=== PATIENT | male | born 1950 | race Caucasian/White ===

== ENCOUNTER → 2020-10-02 | Outpatient (CLI) | payer MEDICARE ==
[~2020-10-02] MED LIST: ACETAMINOPHEN TAB 325 MG TAB PO STA; BAMLANIVIMAB (EUA) 700 MG, ETESEVIMAB (EUA) 1,400 MG in SODIUM CHLORIDE 0.9% 50 ML IVPB ONE; SODIUM CHLORIDE 0.9% 1,000 ML IV ONE; SODIUM CHLORIDE 0.9% 50 ML IVPB ONE; SODIUM CHLORIDE 0.9% 500 ML 500 ML in EMPTY BAG 1 BAG IV PRN
[2020-10-02] MEDS: ONDANSETRON 4 MG/2 ML VIAL IVP STA ×2 (04:23→10:30)
[2020-10-02 04:29] LABS: Basophils % (A) 1 %; Eosinophils % (A) 1 %; HCT 44.5 % (39.0-53.0); HGB 16.6 gm/dL (13.0-17.5); Lymphocytes # (A) 0.5 k/uL (1.0-4.8); Lymphocytes % (A) 18 %; MCH 30.9 pg (25.0-35.0); MCHC 37.2 g/dL (31.0-37.0); Mean Platelet Volume 7.9; Monocytes # (A) 0.3 k/uL (0-1.0); Monocytes % (A) 12 %; Neutrophils # (A) 1.9 k/uL (1.3-7.7); Neutrophils % (A) 67 %; Platelet Count 105 k/uL (150-450); RBC 5.37 m/uL (4.30-5.90); RDW 12.8 % (11.5-15.5); WBC 2.8 k/uL (3.8-10.6)
[2020-10-02 04:47] LABS: ALT 57 U/L (4-49); AST 66 U/L (17-59); African American GFR (CKD) >90 (>60 ml/min/1.73 sqM); Alkaline Phosphatase 81 U/L (38-126); Amylase 66 U/L (30-110); Anion Gap 10 mmol/L; Blood Urea Nitrogen 7 mg/dL (9-20); Calcium 8.6 mg/dL (8.4-10.2); Carbon Dioxide 26 mmol/L (22-30); Chloride 90 mmol/L (98-107); Glucose 112 mg/dL (74-99); Lipase 115 U/L (23-300); Non-African American GFR(CKD) >90 (>60 ml/min/1.73 sqM); Potassium 3.7 mmol/L (3.5-5.1); Sodium 126 mmol/L (137-145); Total Bilirubin 0.8 mg/dL (0.2-1.3); Total Protein 6.7 g/dL (6.3-8.2)
[2020-10-02 06:00] LABS: Appearance,Urine Clear (Clear); Bilirubin,Urine Negative (Negative); Blood,Urine Negative (Negative); Color,Urine Yellow; Glucose,Urine (UA) Negative (Negative); Ketones,Urine 3+ (Negative); Leukocyte Esterase,Urine Negative (Negative); Nitrite,Urine Negative (Negative); PH, Urine 6.5 (5.0-8.0); Protein,Urine Negative (Negative); Specific Gravity,Urine 1.011 (1.001-1.035); Urobilinogen,Urine <2.0 mg/dL (<2.0)
--- NOTE | 2020-10-02 06:04 | ED ---
Nausea/Vomiting/Diarrhea HPI - General Chief complaint: Nausea/Vomiting/Diarrhea Stated complaint: nausea, vomiting Time Seen by Provider: 10/02/20 03:46 Source: patient Mode of arrival: wheelchair Limitations: no limitations - History of Present Illness Initial comments: This patient is 70-year-old man presenting to have evaluation for weakness, fatigue, some myalgias, and diarrhea that developing over the past couple of days. Denies dyspnea. No chest pain. No abdominal pain. MD complaint: nausea, diarrhea -: hour(s) Description of Vomiting: food contents Associated Abdominal Pain: No Improves with: none Worsens with: none Associated Symptoms: myalgias, cough - Related Data Allergies Allergy/AdvReac Type Severity Reaction Status Date / Time No Known Allergies Allergy Verified 10/02/20 03:20 Review of Systems ROS Statement: Those systems with pertinent positive or pertinent negative responses have been documented in the HPI. ROS Other: All systems not noted in ROS Statement are negative. Constitutional: Denies: fever, chills, weakness Respiratory: Denies: cough, dyspnea Cardiovascular: Denies: chest pain, palpitations, edema Endocrine: Reports: fatigue Gastrointestinal: Reports: nausea, diarrhea. Denies: abdominal pain, vomiting, constipation, melena, hematochezia Genitourinary: Denies: dysuria, hematuria Musculoskeletal: Denies: back pain Skin: Denies: rash Neurological: Denies: headache, weakness, numbness Past Medical History Past Medical History: Hyperlipidemia, Thyroid Disorder History of Any Multi-Drug Resistant Organisms: None Reported Past Surgical History: Orthopedic Surgery Additional Past Surgical History / Comment(s): ulcers Past Psychological History: No Psychological Hx Reported Smoking Status: Never smoker Past Alcohol Use History: None Reported Past Drug Use History: None Reported General Exam Limitations: no limitations General appearance: alert, in no apparent distress Head exam: Present: atraumatic, normocephalic Eye exam: Present: normal appearance. Absent: scleral icterus, conjunctival injection ENT exam: Present: mucous membranes dry Neck exam: Present: normal inspection Respiratory exam: Present: normal lung sounds bilaterally, rales. Absent: respiratory distress, wheezes, rhonchi, stridor Cardiovascular Exam: Present: regular rate, normal rhythm, normal heart sounds. Absent: systolic murmur, diastolic murmur, rubs, gallop GI/Abdominal exam: Present: soft. Absent: distended, tenderness, guarding, rebound, rigid, mass Extremities exam: Present: normal inspection, normal capillary refill. Absent: pedal edema, calf tenderness Back exam: Present: normal inspection. Absent: CVA tenderness (R), CVA tenderness (L) Neurological exam: Present: alert Skin exam: Present: warm, dry, intact, normal color. Absent: rash Course Vital Signs 10/02/20 10/02/20 03:20 05:35 Temperature 98.2 F Pulse Rate 72 71 Respiratory 18 18 Rate Blood Pressure 145/86 137/91 O2 Sat by Pulse 97 94 L Oximetry Medical Decision Making - Medical Decision Making Patient is 70-year-old man with constellation of symptoms and found to be positive for covid infection. Discussed the medical antibody therapy and the patient does request to have this. The patient was feeling better following hydration and did request to go home. So discussed the hyponatremia and the patient has had saline bolus. He does not wish to stay for this condition he will follow-up to have her rechecked. - Lab Data Result diagrams: 10/02/20 04:09 10/02/20 04:09 Lab Results 10/02/20 10/02/20 10/02/20 Range/Units 04:09 04:09 04:09 WBC 2.8 L (3.8-10.6) k/uL RBC 5.37 (4.30-5.90) m/uL Hgb 16.6 (13.0-17.5) gm/dL Hct 44.5 (39.0-53.0) % MCV 83.0 (80.0-100.0) fL MCH 30.9 (25.0-35.0) pg MCHC 37.2 H (31.0-37.0) g/dL RDW 12.8 (11.5-15.5) % Plt Count 105 L (150-450) k/uL MPV 7.9 Neutrophils % 67 % Lymphocytes % 18 % Monocytes % 12 % Eosinophils % 1 % Basophils % 1 % Neutrophils # 1.9 (1.3-7.7) k/uL Lymphocytes # 0.5 L (1.0-4.8) k/uL Monocytes # 0.3 (0-1.0) k/uL Eosinophils # 0.0 (0-0.7) k/uL Basophils # 0.0 (0-0.2) k/uL Sodium 126 L (137-145) mmol/L Potassium 3.7 (3.5-5.1) mmol/L Chloride 90 L (98-107) mmol/L Carbon Dioxide 26 (22-30) mmol/L Anion Gap 10 mmol/L BUN 7 L (9-20) mg/dL Creatinine 0.64 L (0.66-1.25) mg/dL Est GFR (CKD-EPI)AfAm >90 (>60 ml/min/1.73 sqM) Est GFR (CKD-EPI)NonAf >90 (>60 ml/min/1.73 sqM) Glucose 112 H (74-99) mg/dL Calcium 8.6 (8.4-10.2) mg/dL Total Bilirubin 0.8 (0.2-1.3) mg/dL AST 66 H (17-59) U/L ALT 57 H (4-49) U/L Alkaline Phosphatase 81 (38-126) U/L Total Protein 6.7 (6.3-8.2) g/dL Albumin 4.0 (3.5-5.0) g/dL Amylase 66 (30-110) U/L Lipase 115 (23-300) U/L Urine Color Urine Appearance (Clear) Urine pH (5.0-8.0) Ur Specific [place] (1.001-1.035) Urine Protein (Negative) Urine Glucose (UA) (Negative) Urine Ketones (Negative) Urine Blood (Negative) Urine Nitrite (Negative) Urine Bilirubin (Negative) Urine Urobilinogen (<2.0) mg/dL Ur Leukocyte Esterase (Negative) Coronavirus (PCR) Detected A (Not Detectd) 10/02/20 Range/Units 05:19 WBC (3.8-10.6) k/uL RBC (4.30-5.90) m/uL Hgb (13.0-17.5) gm/dL Hct (39.0-53.0) % MCV (80.0-100.0) fL MCH (25.0-35.0) pg MCHC (31.0-37.0) g/dL RDW (11.5-15.5) % Plt Count (150-450) k/uL MPV Neutrophils % % Lymphocytes % % Monocytes % % Eosinophils % % Basophils % % Neutrophils # (1.3-7.7) k/uL Lymphocytes # (1.0-4.8) k/uL Monocytes # (0-1.0) k/uL Eosinophils # (0-0.7) k/uL Basophils # (0-0.2) k/uL Sodium (137-145) mmol/L Potassium (3.5-5.1) mmol/L Chloride (98-107) mmol/L Carbon Dioxide (22-30) mmol/L Anion Gap mmol/L BUN (9-20) mg/dL Creatinine (0.66-1.25) mg/dL Est GFR (CKD-EPI)AfAm (>60 ml/min/1.73 sqM) Est GFR (CKD-EPI)NonAf (>60 ml/min/1.73 sqM) Glucose (74-99) mg/dL Calcium (8.4-10.2) mg/dL Total Bilirubin (0.2-1.3) mg/dL AST (17-59) U/L ALT (4-49) U/L Alkaline Phosphatase (38-126) U/L Total Protein (6.3-8.2) g/dL Albumin (3.5-5.0) g/dL Amylase (30-110) U/L Lipase (23-300) U/L Urine Color Yellow Urine Appearance Clear (Clear) Urine pH 6.5 (5.0-8.0) Ur Specific [place] 1.011 (1.001-1.035) Urine Protein Negative (Negative) Urine Glucose (UA) Negative (Negative) Urine Ketones 3+ H (Negative) Urine Blood Negative (Negative) Urine Nitrite Negative (Negative) Urine Bilirubin Negative (Negative) Urine Urobilinogen <2.0 (<2.0) mg/dL Ur Leukocyte Esterase Negative (Negative) Coronavirus (PCR) (Not Detectd) Disposition Clinical Impression: COVID-19, Hyponatremia Disposition: HOME SELF-CARE Condition: Good Instructions (If sedation given, give patient instructions): Coronavirus Disease 2019 (COVID-19), Acute Nausea and Vomiting (ED) Is patient prescribed a controlled substance at d/c from ED?: No Referrals: Thomas Jackson MD [Primary Care Provider] - 1-2 days
[2020-10-02 09:27] VITALS: PULSE 78; RESP 16; TEMP 99
[2020-10-02 10:02] VITALS: BP 154/65
== END ==
LOC: EC 03:12 → PROCWHC3 03:12 → EDSTATUS 09:10
PROVIDERS: ATTEND Emergency Medicine
DX: U07.1 COVID-19 (principal); E87.1 Hypo-osmolality and hyponatremia; E78.5 Hyperlipidemia, unspecified
CPT/HCPCS: 36415; 80053; 82150; 83690; 85025; 81003; 87635; 96375; 99284; 96360; J2405; Q0245; M0245

== ENCOUNTER 2020-10-03 09:05 | Inpatient (IN) | payer MEDICARE ==
[2020-10-03] MEDS ORDERED: SODIUM CHLORIDE 0.9% 1,000 ML IV ONE (09:37)
[2020-10-03] MEDS ORDERED: METOCLOPRAMIDE 5 MG/ML 2 ML VIAL IVP STA (09:37)
[2020-10-03] MEDS ORDERED: SODIUM CHLORIDE 0.9% 500 ML 500 ML IV ONE (09:37)
[2020-10-03] MEDS ORDERED: SODIUM CHLORIDE 0.9% 1,000 ML IV SCH ×2 (09:45→11:00)
[2020-10-03 10:01] LABS: Basophils % (A) 1 %; Eosinophils % (A) 1 %; HCT 40.6 % (39.0-53.0); HGB 15.2 gm/dL (13.0-17.5); Hyperchromasia Moderate; Lymphocytes # (A) 0.6 k/uL (1.0-4.8); Lymphocytes % (A) 18 %; MCH 30.3 pg (25.0-35.0); MCHC 37.4 g/dL (31.0-37.0); Mean Platelet Volume 8.5; Monocytes # (A) 0.4 k/uL (0-1.0); Monocytes % (A) 12 %; Neutrophils # (A) 2.2 k/uL (1.3-7.7); Neutrophils % (A) 67 %; Platelet Count 127 k/uL (150-450); RBC 5.01 m/uL (4.30-5.90); RDW 12.5 % (11.5-15.5); WBC 3.3 k/uL (3.8-10.6)
[2020-10-03 10:11] LABS: ALT 60 U/L (4-49); AST 83 U/L (17-59); African American GFR (CKD) >90 (>60 ml/min/1.73 sqM); Albumin 3.7 g/dL (3.5-5.0); Alkaline Phosphatase 76 U/L (38-126); Anion Gap 13 mmol/L; Blood Urea Nitrogen 5 mg/dL (9-20); Calcium 7.9 mg/dL (8.4-10.2); Carbon Dioxide 20 mmol/L (22-30); Chloride 82 mmol/L (98-107); Glucose 129 mg/dL (74-99); Magnesium 1.3 mg/dL (1.6-2.3); Non-African American GFR(CKD) >90 (>60 ml/min/1.73 sqM); Potassium 3.4 mmol/L (3.5-5.1); Total Bilirubin 0.9 mg/dL (0.2-1.3); Total Protein 6.4 g/dL (6.3-8.2)
[2020-10-03 10:16] LABS: Sodium 115 mmol/L (137-145)
--- NOTE | 2020-10-03 10:22 | XR ---
EXAMINATION TYPE: XR KUB portable DATE OF EXAM: 10/03/2020 10:13 AM CLINICAL HISTORY: Vomiting. TECHNIQUE: 3 supine KUB images of the abdomen are obtained. COMPARISON: None. FINDINGS: Scattered gas is seen in non-distended small bowel loops. Gas and fecal material is seen in non-distended colon. Surgical clips epigastric region. Elevated right hemidiaphragm with right basil ar linear scarring and/or atelectasis. Moderate axial joint space loss both hips. IMPRESSION: Overall nonobstructive bowel gas pattern.
[2020-10-03] MEDS ORDERED: MAGNESIUM OXIDE 400 MG TAB PO STA (10:26)
[2020-10-03] MEDS ORDERED: NALOXONE 0.4 MG/ML 1 ML VIAL IV PRN (11:05)
--- NOTE | 2020-10-03 11:07 | ED ---
Nausea/Vomiting/Diarrhea HPI - General Chief complaint: Nausea/Vomiting/Diarrhea Stated complaint: Revisit - Vomiting Time Seen by Provider: 10/03/20 09:17 Source: patient Mode of arrival: ambulatory Limitations: no limitations - History of Present Illness Initial comments: 70-year-old male presenting for persistent nausea, dry heaving. Patient states that 2 days he's had diarrhea vomiting he states he presents emergency department yesterday with similar symptoms and was given monoclonal antibodies and discharge. He denies a chest pain shortness of breath fevers he states he just overall feels unwell. He denies feeling confused he denies any chest pain short of breath palpitations. Upon arrival patient appears nontoxic however he is tried heaving and holding an emesis basin. Patient states he has been taking outpatient Zofran but this does not seem to help. Remaining review of systems negative upon arrival patient appears to be feeling unwell, yet nontoxic - Related Data Home Medications Medication Instructions Recorded Confirmed Ascorbic Acid [Vitamin C] 1,000 mg PO DAILY 10/03/20 10/03/20 Atorvastatin [Lipitor] 20 mg PO Q48H 10/03/20 10/03/20 Cholecalciferol [Vitamin D3 (25 50 mcg PO DAILY 10/03/20 10/03/20 Mcg = 1000 Iu)] Methimazole [Tapazole] 5 mg PO DAILY 10/03/20 10/03/20 Zinc 50 mg PO DAILY 10/03/20 10/03/20 Allergies Allergy/AdvReac Type Severity Reaction Status Date / Time No Known Allergies Allergy Verified 10/03/20 10:12 Review of Systems ROS Statement: Those systems with pertinent positive or pertinent negative responses have been documented in the HPI. ROS Other: All systems not noted in ROS Statement are negative. Past Medical History Past Medical History: Hyperlipidemia, Thyroid Disorder History of Any Multi-Drug Resistant Organisms: None Reported Past Surgical History: Orthopedic Surgery Additional Past Surgical History / Comment(s): ulcers Past Psychological History: No Psychological Hx Reported Smoking Status: Never smoker - Past Family History Mother Family Medical History: No Reported History Father Family Medical History: Cancer Additional Family Medical History / Comment(s): LUNG CANCER General Exam - General Exam Comments Initial Comments: General: The patient is awake and alert, in no distress, and does not appear acutely ill. Eye: +3 mm pupils are equal, round and reactive to light, extra-ocular movements are intact. No nystagmus. There is normal conjunctiva bilaterally. No signs of icterus. Ears, nose, mouth and throat: There are moist mucous membranes and no oral lesions. Neck: The neck is supple, there is no tenderness or JVD. Cardiovascular: There is a regular rate and rhythm. No murmur, rub or gallop is appreciated. Respiratory: Lungs are clear to auscultation, respirations are non-labored, breath sounds are equal. No wheezes, stridor, rales, or rhonchi. Gastrointestinal: Soft, non-distended, non-tender abdomen without masses or organomegaly noted. There is no rebound or guarding present. Musculoskeletal: Normal ROM, no tenderness. Strength 5/5. Sensation intact. Pulses equal bilaterally 2+. Neurological: A&O x 3. CN II-XII intact, There are no obvious motor or sensory deficits. Coordination appears grossly intact. Speech is normal. Skin: Skin is warm and dry and no rashes or lesions are noted. Psychiatric: Cooperative, appropriate mood & affect, normal judgment. Limitations: no limitations Course Vital Signs 10/03/20 09:09 Temperature 98.5 F Pulse Rate 58 L Respiratory 18 Rate Blood Pressure 179/94 O2 Sat by Pulse 97 Oximetry Procedures - [place] Protocol (Time Out) Nurse: Percy Moody Medical Decision Making - Medical Decision Making Fluids initially running at 130ml/hr there were changed once the results of the critical sodium was received.Decreased rate, stopped bolus. pt given reglan, but nausea persists felt this is likely secondary to the hyponatremia he denies headaches he is not altered he is alert and oriented 3 does not appear toxic. Patient does have some mild QT prolongation on EKG patient was evaluated by attending provider who is agreeable to admission with gentle hydration and repeat sodium levels. Patient's case was accepted by admitting provider the patient was agreeable to this admission. Ventricular rate 73 bpm, IN interval 202 ms, QR scientology 80 ms, QT/QTC 436/480-mild qt prolongation. There is significant artifact no ST elevation or depression - Lab Data Result diagrams: 10/03/20 09:48 10/03/20 09:48 Lab Results 10/03/20 10/03/20 Range/Units 09:48 09:48 WBC 3.3 L (3.8-10.6) k/uL RBC 5.01 (4.30-5.90) m/uL Hgb 15.2 (13.0-17.5) gm/dL Hct 40.6 (39.0-53.0) % MCV 81.0 (80.0-100.0) fL MCH 30.3 (25.0-35.0) pg MCHC 37.4 H (31.0-37.0) g/dL RDW 12.5 (11.5-15.5) % Plt Count 127 L (150-450) k/uL MPV 8.5 Neutrophils % 67 % Lymphocytes % 18 % Monocytes % 12 % Eosinophils % 1 % Basophils % 1 % Neutrophils # 2.2 (1.3-7.7) k/uL Lymphocytes # 0.6 L (1.0-4.8) k/uL Monocytes # 0.4 (0-1.0) k/uL Eosinophils # 0.0 (0-0.7) k/uL Basophils # 0.0 (0-0.2) k/uL Manual Slide Review Performed Hyperchromasia Moderate Sodium 115 L* (137-145) mmol/L Potassium 3.4 L (3.5-5.1) mmol/L Chloride 82 L (98-107) mmol/L Carbon Dioxide 20 L (22-30) mmol/L Anion Gap 13 mmol/L BUN 5 L (9-20) mg/dL Creatinine 0.51 L (0.66-1.25) mg/dL Est GFR (CKD-EPI)AfAm >90 (>60 ml/min/1.73 sqM) Est GFR (CKD-EPI)NonAf >90 (>60 ml/min/1.73 sqM) Glucose 129 H (74-99) mg/dL Calcium 7.9 L (8.4-10.2) mg/dL Magnesium 1.3 L (1.6-2.3) mg/dL Total Bilirubin 0.9 (0.2-1.3) mg/dL AST 83 H (17-59) U/L ALT 60 H (4-49) U/L Alkaline Phosphatase 76 (38-126) U/L Total Protein 6.4 (6.3-8.2) g/dL Albumin 3.7 (3.5-5.0) g/dL Disposition Clinical Impression: Vomiting, Nausea, Hyponatremia Disposition: ADMITTED IP TO THIS [facility] Condition: Stable Is patient prescribed a controlled substance at d/c from ED?: No Time of Disposition: 11:07 Decision to Admit Reason: Admit from EC Decision Date: 10/03/20 Decision Time: 11:07
[2020-10-03] MEDS ORDERED: ACETAMINOPHEN TAB 325 MG TAB PO PRN (13:14)
--- NOTE | 2020-10-03 16:33 | US ---
EXAMINATION TYPE: US abdomen complete DATE OF EXAM: 10/03/2020 COMPARISON: NONE CLINICAL HISTORY: transaminitis. abnormal labs. EXAM MEASUREMENTS: Liver Length: 15.5 cm Gallbladder Wall: 0.2 cm Spleen: 12.5 cm Right Kidney: 10.5 x 5.1 x 6.2 cm Left Kidney: 11.1 x 5.4 x 6.2 cm limited due to bowel gas Pancreas: Obscured by bowel gas Liver: Limited visualization. Left lobe not visualized. Gallbladder: Limited visualization. No prominent stone or sludge seen. Evidence for sonographic Lei's sign: neg CBD: Obscured by overlying bowel gas Spleen: wnl Right Kidney: No hydronephrosis or masses seen Left Kidney: No hydronephrosis or masses seen Upper IVC: Obscured by overlying bowel gas Abd Aorta: Obscured by overlying bowel gas IMPRESSION: No gallstones or dilated ducts. No evidence of renal mass or obstruction. No ascites.
[2020-10-03] MEDS: POTASSIUM CHLORIDE ER 20 MEQ TAB.ER PO SCH (16:45)
[2020-10-03] MEDS: ONDANSETRON 4 MG/2 ML VIAL IVP PRN ×2 (16:45→23:27)
[2020-10-03] MEDS: SODIUM CHLORIDE 0.9% 1,000 ML IV SCH ×2 (16:52→21:28)
--- NOTE | 2020-10-03 17:33 | P.HPIM ---
History of Present Illness H&P Date: 10/03/20 This is a 70 years old male patient of Dr. Jackson past medical history of hyperlipidemia and hyperthyroidism comes in with intractable nausea and vomiting start taking 2 days ago. Patient was seen in the ER yesterday with similar symptoms and was given monoclonal antibodies for Covid infection and was discharged. Patient did call the answering pager due to ongoing nausea and vomiting post discharge from the ER. Oral Zofran and was sent to patient's pharmacy. Patient did have a meal after sick taking some nausea medication but could not tolerate it and hence was decided to come to the hospital again. Evaluation in the ER patient had a temp of 98.5 pulse 58 respiratory rate 18 bl ood pressure 179/94 he was saturating at 97% on room air. On evaluation patient's blood work WBC is noted to be 3.3 with lymphopenia sodium 1:15 potassium 3.4 chloride 82 bicarb 80 BUN 5 creatinine 0.51 glucose 129 calcium 7.9 magnesium 1.3 elevated AST and ALT is 83 and 60 respectively troponin 1 is negative. Patient received 1-1/2 L IV fluid bolus in the ER and was initially 100 mL/h of IV normal saline. Patient denies any nausea, chest pain, abdominal pain today. He is hard of hearing. We will repeat labs in the evening. Keep patient nothing by mouth. Have gastroenterology evaluated the patient. Acute hepatitis panel ordered. Protonix 40 IV twice a day Review of Systems Constitutional: Endorses chills, Denies fever, endorses lethargy endorses loss of appetite Eyes: denies decreased vision, denies diplopia, denies discharge, denies pain Ears: deny: decreased hearing Ears, nose, mouth and throat: Denies dental pain, Denies headache, Denies nasal discharge, Denies nose pain Cardiovascular: Denies chest pain, Denies decreased exercise tolerance, Denies edema, Denies high blood pressure, Denies irregular heart beat, Denies palpitations, Denies paroxysmal nocturnal dyspnea, Denies rapid heart beat, Denies shortness of breath Respiratory: Denies congestion, Denies cough, Denies cough with sputum, Denies dyspnea, Denies home oxygen, Denies wheezing Gastrointestinal: Denies abdominal pain, Denies change in bowel habits, Denies coffee ground emesis, Denies early satiety, Denies excessive gas, Denies heartburn, Denies hematemesis, Denies hematochezia, endorses loss of appetite, endorses endorses nausea, Denies vomiting Genitourinary: Denies dysuria, Denies flank pain, Denies kidney stones, Denies menorrhagia, Denies urgency, Denies urinary frequency Musculoskeletal: Denies gait dysfunction, Denies limitation of motion, Denies morning stiffness, Denies muscle cramps Integumentary: Denies rash, Denies wounds, Denies brittle nails, Denies change in hair/nails, Denies darkening of skin Neurological: Denies balance difficulties, Denies change in speech, Denies double vision, Denies gait dysfunction, Denies loss of vision, Denies motor d isturbance, Denies numbness, Denies paralysis, Denies paresthesias, Denies seizures Psychiatric: Denies anxiety, Denies depression Endocrine: Denies excessive sweating, Denies excessive thirst, Denies high blood sugars, Denies palpitations Hematologic/Lymphatic: Denies easy bruising, Denies lymphadenopathy Past Medical History Past Medical History: Hyperlipidemia, Thyroid Disorder History of Any Multi-Drug Resistant Organisms: None Reported Past Surgical History: Orthopedic Surgery Additional Past Surgical History / Comment(s): ulcers Past Anesthesia/Blood Transfusion Reactions: No Reported Reaction Past Psychological History: No Psychological Hx Reported Smoking Status: Never smoker - Past Family History Mother Family Medical History: No Reported History Father Family Medical History: Cancer Additional Family Medical History / Comment(s): LUNG CANCER Medications and Allergies Home Medications Medication Instructions Recorded Confirmed Type Ascorbic Acid [Vitamin C] 1,000 mg PO DAILY 10/03/20 10/03/20 History Atorvastatin [Lipitor] 20 mg PO Q48H 10/03/20 10/03/20 History Cholecalciferol [Vitamin D3 (25 50 mcg PO DAILY 10/03/20 10/03/20 History Mcg = 1000 Iu)] Methimazole [Tapazole] 5 mg PO DAILY 10/03/20 10/03/20 History Zinc 50 mg PO DAILY 10/03/20 10/03/20 History Allergies Allergy/AdvReac Type Severity Reaction Status Date / Time No Known Allergies Allergy Verified 10/03/20 10:12 Physical Exam Vitals: Vital Signs Temp Pulse Pulse Pulse Resp BP BP 10/03/20 11:48 98.4 F 67 67 22 150/79 10/03/20 09:09 98.5 F 58 L 18 179/94 Pulse Ox 10/03/20 11:48 94 L 10/03/20 09:09 97 Intake and Output 10/02/20 10/03/20 10/03/20 22:59 06:59 14:59 Intake Total 0 Output Total 200 Balance -200 Intake: Oral 0 Output: Urine 200 Other: Weight 88.451 kg - Constitutional General appearance: cooperative, no acute distress, obese - EENT Eyes: anicteric sclerae, PERRLA, normal appearance ENT: hard of hearing - Neck Neck: no lymphadenopathy, normal ROM, no other, no rigidity, no stridor, no thyromegaly - Respiratory Respiratory: bilateral: CTA, negative: diminished, dullness, rales, rhonchi - Cardiovascular Rhythm: regular Heart sounds: normal: S1, S2 Abnormal Heart Sounds: no systolic murmur, no diastolic murmur, no rub, no S3 Gallop, no S4 Gallop, no click, no other - Gastrointestinal General gastrointestinal: normal bowel sounds, soft - Integumentary Integumentary: no rash - Neurologic Neurologic: no sensory or motor deficit coordination intact - Musculoskeletal Musculoskeletal: gait normal, strength equal bilaterally - Psychiatric Psychiatric: A&O x's 3, appropriate affect Results CBC & Chem 7: 10/03/20 09:48 10/03/20 15:10 Labs: Abnormal Lab Results - Last 24 Hours (Table) 10/03/20 10/03/20 Range/Units 09:48 09:48 WBC 3.3 L (3.8-10.6) k/uL MCHC 37.4 H (31.0-37.0) g/dL Plt Count 127 L (150-450) k/uL Lymphocytes # 0.6 L (1.0-4.8) k/uL Sodium 115 L* (137-145) mmol/L Potassium 3.4 L (3.5-5.1) mmol/L Chloride 82 L (98-107) mmol/L Carbon Dioxide 20 L (22-30) mmol/L BUN 5 L (9-20) mg/dL Creatinine 0.51 L (0.66-1.25) mg/dL Glucose 129 H (74-99) mg/dL Calcium 7.9 L (8.4-10.2) mg/dL Magnesium 1.3 L (1.6-2.3) mg/dL AST 83 H (17-59) U/L ALT 60 H (4-49) U/L Thrombosis Risk Factor Assmnt - DVT/VTE Prophylaxis DVT/VTE Prophylaxis: Pharmacologic Prophylaxis ordered - Choose All That Apply Each Risk Factor Represents 2 Points: Age 61-74 years Thrombosis Risk Factor Assessment Total Risk Factor Score: 2 Thrombosis Risk Factor Assessment Level: Low Risk Assessment and Plan Plan: #1 intractable nausea and vomiting which is likely secondary to acute Covid infection with underlying gastritis. Continue pantoprazole 40 mg IV twice a day. Liquid diet. Gastroenterology consulted. #2 Acute Covid infection. No respiratory compromise. Monitor inflammation markers. will order vit D, vit C and zinc #3 hyponatremia likely secondary to dehydration and volume deficit. Serum sodium, serum osmolarity and urine osmolarity ordered. Nephrology consulted. Repeat sodium 117. Continue IV normal saline at 100 mL/h. #4 hyperthyroidism. TSH ordered. Continue methimazole #5 hyperlipidemia continue atorvastatin every 48 hours #6 DVT prophylaxis with Lovenox 40 subcu daily #7 GI prophylaxis with pantoprazole 40 IV twice a day CODE STATUS full code #9 disposition patient is 1-2 inpatient nights for stabilization
[2020-10-03 18:14] LABS: Sodium 119 mmol/L (137-145)
[2020-10-03 19:17] LABS: Hepatitis A Antibody IgM Non-Reactive (Non-Reactive); Hepatitis B Core IgM Non-Reactive (Non-Reactive); Hepatitis B Surface Antigen Non-Reactive (Non-Reactive); Hepatitis C IgG Antibody Reactive (Non-Reactive)
[2020-10-03] MEDS: ASCORBIC ACID 500 MG TAB PO SCH (21:27)
[2020-10-03] MEDS: METOCLOPRAMIDE 5 MG/ML 2 ML VIAL IVP PRN (21:27)
[2020-10-03] MEDS: ATORVASTATIN 20 MG TAB PO SCH (21:27)
[2020-10-03] MEDS: PANTOPRAZOLE 40 MG/10 ML VIAL IVP SCH (21:27)
[2020-10-04] MEDS: ZINC SULFATE 220 MG CAP PO SCH (09:27)
[2020-10-04] MEDS: CHOLECALCIFEROL 25 MCG (1000 IU) TABLET PO SCH (09:27)
[2020-10-04] MEDS: POTASSIUM CHLORIDE ER 20 MEQ TAB.ER PO SCH (09:27)
[2020-10-04] MEDS: ASCORBIC ACID 500 MG TAB PO SCH ×2 (09:27→20:47)
[2020-10-04] MEDS: methIMAzole 5 MG TAB PO SCH (09:27)
[2020-10-04] MEDS: SODIUM CHLORIDE 0.9% 1,000 ML IV SCH (09:28)
[2020-10-04] MEDS: PANTOPRAZOLE 40 MG/10 ML VIAL IVP SCH ×2 (09:30→20:47)
[2020-10-04 09:31] LABS: HCT 39.7 % (39.0-53.0); HGB 14.7 gm/dL (13.0-17.5); Hyperchromasia Slight; MCHC 36.9 g/dL (31.0-37.0); MCV 81.3 fL (80.0-100.0); Mean Platelet Volume 8.1; Platelet Count 122 k/uL (150-450); RBC 4.88 m/uL (4.30-5.90); RDW 12.6 % (11.5-15.5); WBC 3.9 k/uL (3.8-10.6)
[2020-10-04] MEDS: METOCLOPRAMIDE 5 MG/ML 2 ML VIAL IVP PRN (09:31)
[2020-10-04] MEDS: ENOXAPARIN 40 MG/0.4 ML SYRINGE SQ SCH (09:31)
[2020-10-04 09:40] LABS: ALT 109 U/L (4-49); AST 153 U/L (17-59); African American GFR (CKD) >90 (>60 ml/min/1.73 sqM); Albumin 3.1 g/dL (3.5-5.0); Alkaline Phosphatase 66 U/L (38-126); Anion Gap 4 mmol/L; Blood Urea Nitrogen 3 mg/dL (9-20); C Reactive Protein 0.5 mg/dL (<1.0); Calcium 7.7 mg/dL (8.4-10.2); Carbon Dioxide 28 mmol/L (22-30); Chloride 87 mmol/L (98-107); Glucose 115 mg/dL (74-99); LDH 743 U/L (313-618); Magnesium 1.6 mg/dL (1.6-2.3); Non-African American GFR(CKD) >90 (>60 ml/min/1.73 sqM); Potassium 3.4 mmol/L (3.5-5.1); Total Bilirubin 0.8 mg/dL (0.2-1.3); Total Protein 5.5 g/dL (6.3-8.2)
[2020-10-04 09:49] LABS: Sodium 119 mmol/L (137-145)
[2020-10-04] MEDS ORDERED: POTASSIUM CHLORIDE ER 20 MEQ TAB.ER PO STA (11:20)
--- NOTE | 2020-10-04 12:34 | CONS ---
CONSULTATION REASON FOR CONSULT: Hyponatremia. HISTORY OF PRESENT ILLNESS: The patient is a 70-year-old male who was admitted to the hospital with complaints of diarrhea for about two days prior to admission. He was feeling weak. The patient was recently diagnosed with COVID and is status post monoclonal antibodies. He denies any previous history of hyponatremia. Serum sodium was 115 on admission. The patient has been started on normal saline and his sodium improved to 119 last night and it is again 119 today. Currently he is maintained on normal saline at 100 mL an hour. Urine osmolality was 153. Blood pressure has not been low, in fact, staying about 150-140 mmHg systolic. I do see a sodium of 126 on 10/02/2020. The patient admitted to not eating much and was mostly drinking fluids prior to admission. No new medications recently except for monoclonal antibodies for COVID infection. PAST MEDICAL HISTORY: Hyperlipidemia, hypothyroidism. PAST SURGICAL HISTORY: Orthopedic surgery, details not known. SOCIAL HISTORY: Negative for smoking, drug abuse or alcohol abuse. MEDICATIONS: Medications prior to admission included vitamin C, Lipitor, vitamin D, Tapazole, zinc. ALLERGIES: None. REVIEW OF SYSTEMS: As per HPI. Other systems negative. EXAMINATION: Patient is comfortable, awake, alert, not in any acute distress. Blood pressure 154/76, heart rate 61 per minute, this morning 157/84, heart rate 58 per minute, he is afebrile. Examination of the lower extremities shows no evidence of edema. Patient appears euvolemic. His abdomen is soft nontender. COOK DINNER exam grossly intact. Lungs and heart are not examined. LAB: Show sodium 119, potassium 3.4, BUN 3, serum creatinine 0.6, albumin is 3.1. ASSESSMENT: 1. Hyponatremia, initially hypovolemic and improved to some degree with normal saline, however, serum sodium has not improved any further from last night and had stayed at 119. Blood pressure is currently not low. I will discontinue the normal saline. We will give him a sodium chloride tab and have the patient increase his protein intake. His urine osmolality is not high which suggests poor urinary osmotic load and possible tea and toast kind of clinical picture. This should also improve with some degree of free water restriction and increase in protein in diet and I will add sodium chloride tabs as long as blood pressure is not significantly elevated. 2. Hypokalemia, replace. 3. Underlying COVID infection with no recent chest x-ray seen. 4. Diarrhea, currently improved. 5. Hyperthyroidism, maintained on Tapazole. PLAN: Discontinue normal saline. Add sodium chloride tabs. Check TSH. Repeat sodium this evening and replace potassium. Thank you for this consultation. Will continue to follow the patient with you during his hospitalization. MMODL / KAMININ: [id number] / MISAEL
--- NOTE | 2020-10-04 12:46 | CONS ---
CONSULTATION DATE OF DICTATION: October 04, 2020. REQUESTING PHYSICIAN: Dr. Jackson. REASON FOR CONSULTATION: Nausea and vomiting. HISTORY OF PRESENT ILLNESS: The patient is a 70-year-old pleasant white male with COVID-19 infection diagnosed 2 days ago. Presents to the hospital with intractable nausea vomiting that started on Monday. He had at least 3 or 4 episodes of bilious emesis and since then has been having intense nausea. He came to the emergency room. He had Covid testing done that was positive. He was discharged home. He came back the following day with worsening symptoms and subsequently admitted to the hospital for further evaluation. He has been on Protonix as well as Zofran and this morning he is feeling much better. Still has some nausea but no further episodes of emesis. He reports no abdominal pain. Never had these symptoms in the past. No prior history of peptic ulcer disease. He has been taking some Aleve occasionally for the last few days. He has remote history of chronic hepatitis C infection. Patient states that he was treated with interferon about 15 years and had responded to the treatment well. PAST MEDICAL HISTORY: Significant for hypertension, hypothyroidism. MEDICATIONS AT HOME: Include Tapazole, zinc, vitamin D3, Lipitor and vitamin C. PAST SURGICAL HISTORY: Colonoscopy about 2 years ago. SOCIAL HISTORY: No smoking. No alcohol use. FAMILY HISTORY: Mother unremarkable. Father had lung cancer. REVIEW OF SYSTEMS: CARDIOPULMONARY: No chest pain or shortness of breath. GENITOURINARY: No dysuria or hematuria. MUSCULOSKELETAL unremarkable. SKIN unremarkable. ENDOCRINE unremarkable. PSYCHIATRIC: Unremarkable. NEUROLOGY: Unremarkable. ENT/VISION: Unremarkable. CONSTITUTIONAL: No recent weight loss. No fever, chills, night sweats. PHYSICAL EXAMINATION: He appears comfortable. No apparent distress. Vital signs stable. Blood pressure is 143/84, temperature 97.6, pulse rate 58. HEENT examination unremarkable. Conjunctivae pink. Sclerae anicteric. Oral cavity no lesions. NECK no JVD or lymph node enlargement. CHEST was clear to auscultation. HEART: Regular rate and rhythm. ABDOMEN: Soft, it was nontender, nondistended. Bowel sounds are positive. No organomegaly. EXTREMITIES: No pedal edema. NEURO: He is alert and oriented x3. No focal deficits. LABS: WBC 3.3, hemoglobin 15.2, platelets 127. Sodium 115, potassium 3.4, chloride 82, CO2 20, BUN 5, creatinine 0.51. AST and ALT are 80 and 60 respectively. T-bilirubin 0.9. Serum osmolality was 244. Hepatitis serologies revealed positive hepatitis C antibody. IMPRESSION: 1. Intractable nausea, vomiting for the last 3 days duration. He was started on symptomatic therapy with Zofran and Protonix and his symptoms have significantly improved. He is on a clear liquid diet, tolerating well. He reports no associated abdominal pain. Symptoms could be related to recent NSAID use, possibly to acute COVID-19 infection. 2. COVID-19 infection with no pulmonary symptoms. 3. Mild elevation of serum transaminases in this patient with remote history of chronic hepatitis C infection. He was treated with interferon about 15-20 years ago and patient states that he had responded to the treatment. Currently, he is noted to have mild elevation of serum transaminases and there is mild leukopenia as well as thrombocytopenia and this raises concern of possible underlying chronic liver disease and possibility of cirrhosis cannot be excluded. Ultrasound of the liver was done that was unremarkable. 4. History of hypothyroidism. RECOMMENDATIONS: 1. Continue with Protonix as well as Zofran. 2. Advance diet as tolerated. 3. We will obtain hepatitis C viral RNA by PCR. 4. Continue symptomatic and supportive care. 5. We will follow with you closely. Thank you for this consultation. WILL / MARISOL: [id number] /
[2020-10-04] MEDS: SODIUM CHLORIDE TAB 1 GM TAB PO SCH ×2 (13:34→21:01)
[2020-10-04 14:10] LABS: Band Neutrophils % 4 %; Lymphocytes # (M) 0.43 k/uL (1.0-4.8); Monocytes # (M) 0.62 k/uL (0-1.0); Neutrophils % (M) 69 %; Nucleated Red Blood Cells 0 /100 WBC (0-0); Total Cells Counted 100
[2020-10-04 14:14] LABS: Erythrocyte Sedimentation Rate 6 mm/hr (0-15)
--- NOTE | 2020-10-04 15:54 | P.PN ---
Subjective Progress Note Date: 10/04/20 This is a 70 years old male patient of Dr. Jackson past medical history of hyperlipidemia and hyperthyroidism comes in with intractable nausea and vomiting start taking 2 days ago. Patient was seen in the ER yesterday with similar symptoms and was given monoclonal antibodies for Covid infection and was discharged. Patient did call the answering pager due to ongoing nausea and vomiting post discharge from the ER. Oral Zofran and was sent to patient's pharmacy. Patient did have a meal after sick taking some nausea medication but could not tolerate it and hence was decided to come to the hospital again. Evaluation in the ER patient had a temp of 98.5 pulse 58 respiratory rate 18 blood pressure 179/94 he was saturating at 97% on room air. On evaluation patient's blood work WBC is noted to be 3.3 with lymphopenia sodium 1:15 potassium 3.4 chloride 82 bicarb 80 BUN 5 creatinine 0.51 glucose 129 calcium 7.9 magnesium 1.3 elevated AST and ALT is 83 and 60 respectively troponin 1 is negative. Patient received 1-1/2 L IV fluid bolus in the ER and was initially 100 mL/h of IV normal saline. Patient denies any nausea, chest pain, abdominal pain today. He is hard of hearing. We will repeat labs in the evening. Keep patient nothing by mouth. Have gastroenterology evaluated the patient. Acute hepatitis panel ordered. Protonix 40 IV twice a day 10/04 patient examined bedside nausea is improved with addition of Reglan to Zofran. Patient's no episode of diarrhea or abdominal pain. Ultrasound abdomen was negative for any acute abnormality. Patient was evaluated by Dr. Farrell recommended adding hepatitis C RNA PCR check as patient has a chronic hepatitis and was treated with interferon 15 years ago. Patient labs are evaluated continued to have a sodium of 119. Urine osmolality is 210 urine sodium is 60. Serum osmolarity is 244. Liver enzymes significantly elevated 153 AST ALT 109 alkaline phosphatase 66 LDH 743 CRP 0.5. Creatinine 0.6 BUN 3. Uric acid will be obtained. Dr. Bosch has evaluated the patient and pain patient's sodium is a combination of hypovolemia and tea and toast syndrome. Recommended to increase patient's routine intake and sodium tablets will be added at Review of Systems Constitutional: Endorses chills, Denies fever, endorses lethargy endorses loss of appetite Eyes: denies decreased vision, denies diplopia, denies discharge, denies pain Ears: deny: decreased hearing Ears, nose, mouth and throat: Denies dental pain, Denies headache, Denies nasal discharge, Denies nose pain Cardiovascular: Denies chest pain, Denies decreased exercise tolerance, Denies edema, Denies high blood pressure, Denies irregular heart beat, Denies palpitations, Denies paroxysmal nocturnal dyspnea, Denies rapid heart beat, Den ies shortness of breath Respiratory: Denies congestion, Denies cough, Denies cough with sputum, Denies dyspnea, Denies home oxygen, Denies wheezing Gastrointestinal: Denies abdominal pain, Denies change in bowel habits, Denies coffee ground emesis, Denies early satiety, Denies excessive gas, Denies heartburn, Denies hematemesis, Denies hematochezia, endorses loss of appetite, endorses endorses nausea, Denies vomiting Genitourinary: Denies dysuria, Denies flank pain, Denies kidney stones, Denies menorrhagia, Denies urgency, Denies urinary frequency Musculoskeletal: Denies gait dysfunction, Denies limitation of motion, Denies morning stiffness, Denies muscle cramps Integumentary: Denies rash, Denies wounds, Denies brittle nails, Denies change in hair/nails, Denies darkening of skin Neurological: Denies balance difficulties, Denies change in speech, Denies double vision, Denies gait dysfunction, Denies loss of vision, Denies motor disturbance, Denies numbness, Denies paralysis, Denies paresthesias, Denies seizures Psychiatric: Denies anxiety, Denies depression Endocrine: Denies excessive sweating, Denies excessive thirst, Denies high blood sugars, Denies palpitations Hematologic/Lymphatic: Denies easy bruising, Denies lymphadenopathy Objective - Vital Signs Vital signs: Vital Signs Temp 98.2 F 10/04/20 09:20 Pulse 68 10/04/20 09:20 Resp 20 10/04/20 09:20 BP 157/93 10/04/20 09:20 Pulse Ox 95 10/04/20 09:20 Intake & Output 10/03/20 10/04/20 10/04/20 18:59 06:59 18:59 Intake Total 118 460 Output Total 1200 350 Balance -1082 -350 460 Weight 88.451 kg 96.5 kg Intake: Oral 118 460 Output: Urine 1200 350 Other: Voiding Method Urinal Toilet Toilet Urinal Urinal # Bowel Movements 1 - Exam - Constitutional General appearance: cooperative, no acute distress, obese - EENT Eyes: anicteric sclerae, PERRLA, normal appearance ENT: hard of hearing - Neck Neck: no lymphadenopathy, normal ROM, no other, no rigidity, no stridor, no thyromegaly - Respiratory Respiratory: bilateral: CTA, negative: diminished, dullness, rales, rhonchi - Cardiovascular Rhythm: regular Heart sounds: normal: S1, S2 Abnormal Heart Sounds: no systolic murmur, no diastolic murmur, no rub, no S3 Gallop, no S4 Gallop, no click, no other - Gastrointestinal General gastrointestinal: normal bowel sounds, soft nontender - Integumentary Integumentary: no rash - Neurologic Neurologic: no sensory or motor deficit coordination intact - Musculoskeletal Musculoskeletal: gait normal, strength equal bilaterally - Psychiatric Psychiatric: A&O x's 3, appropriate affect - Labs CBC & Chem 7: 10/04/20 08:49 10/04/20 09:18 Labs: Abnormal Lab Results - Last 24 Hours (Table) 10/03/20 10/03/20 10/04/20 Range/Units 13:35 17:44 08:49 Plt Count 122 L (150-450) k/uL Lymphocytes # (Manual) 0.43 L (1.0-4.8) k/uL Sodium 119 L* (137-145) mmol/L Potassium (3.5-5.1) mmol/L Chloride (98-107) mmol/L BUN (9-20) mg/dL Creatinine (0.66-1.25) mg/dL Glucose (74-99) mg/dL Osmolality 244 L* (280-301) mosm/kg Calcium (8.4-10.2) mg/dL AST (17-59) U/L ALT (4-49) U/L Lactate Dehydrogenase (313-618) U/L Total Protein (6.3-8.2) g/dL Albumin (3.5-5.0) g/dL Hep C IgG Ab Reactive A (Non-Reactive) 10/04/20 Range/Units 09:18 Plt Count (150-450) k/uL Lymphocytes # (Manual) (1.0-4.8) k/uL Sodium 119 L* (137-145) mmol/L Potassium 3.4 L (3.5-5.1) mmol/L Chloride 87 L (98-107) mmol/L BUN 3 L (9-20) mg/dL Creatinine 0.60 L (0.66-1.25) mg/dL Glucose 115 H (74-99) mg/dL Osmolality (280-301) mosm/kg Calcium 7.7 L (8.4-10.2) mg/dL AST 153 H (17-59) U/L ALT 109 H (4-49) U/L Lactate Dehydrogenase 743 H (313-618) U/L Total Protein 5.5 L (6.3-8.2) g/dL Albumin 3.1 L (3.5-5.0) g/dL Hep C IgG Ab (Non-Reactive) Assessment and Plan Plan: #1 intractable nausea and vomiting which is likely secondary to acute Covid infection with underlying gastritis. Continue pantoprazole 40 mg IV twice a day. Clears switch to regular diet. No plan for EGD Gastroenterology recommendation appreciated #2 Acute Covid infection. No respiratory compromise. Monitor inflammation markers. will continue vit D, vit C and zinc #3 hyponatremia likely secondary to dehydration and volume deficit with possibility of tea and toast syndrome. Repeat sodium 119. Sodium tablets admitted to 1 g twice a day hold IV fluids nephrology recommendation appreciated #4 hyperthyroidism. TSH ordered. Continue methimazole #5 hyperlipidemia continue atorvastatin every 48 hours #6 DVT prophylaxis with Lovenox 40 subcu daily #7 GI prophylaxis with pantoprazole 40 IV twice a day CODE STATUS full code #9 disposition likely discharge tomorrow once sodium improved
[2020-10-05 09:12] LABS: ALT 147 U/L (4-49); AST 158 U/L (17-59); African American GFR (CKD) >90 (>60 ml/min/1.73 sqM); Albumin 3.6 g/dL (3.5-5.0); Alkaline Phosphatase 70 U/L (38-126); Anion Gap 6 mmol/L; Blood Urea Nitrogen 5 mg/dL (9-20); Calcium 8.2 mg/dL (8.4-10.2); Carbon Dioxide 25 mmol/L (22-30); Chloride 99 mmol/L (98-107); Glucose 98 mg/dL (74-99); Non-African American GFR(CKD) >90 (>60 ml/min/1.73 sqM); Potassium 3.8 mmol/L (3.5-5.1); Sodium 130 mmol/L (137-145); Total Protein 6.2 g/dL (6.3-8.2)
[2020-10-05 09:23] LABS: Basophils % (A) 1 %; Eosinophils % (A) 0 %; HCT 43.6 % (39.0-53.0); HGB 15.4 gm/dL (13.0-17.5); Lymphocytes # (A) 1.1 k/uL (1.0-4.8); Lymphocytes % (A) 21 %; MCH 29.2 pg (25.0-35.0); MCHC 35.4 g/dL (31.0-37.0); MCV 82.7 fL (80.0-100.0); Mean Platelet Volume 8.4; Monocytes # (A) 0.7 k/uL (0-1.0); Monocytes % (A) 14 %; Neutrophils # (A) 3.3 k/uL (1.3-7.7); Neutrophils % (A) 63 %; Platelet Count 153 k/uL (150-450); RBC 5.27 m/uL (4.30-5.90); WBC 5.2 k/uL (3.8-10.6)
[2020-10-05] MEDS: ZINC SULFATE 220 MG CAP PO SCH (09:48)
[2020-10-05] MEDS: POTASSIUM CHLORIDE ER 20 MEQ TAB.ER PO SCH (09:48)
[2020-10-05] MEDS: ASCORBIC ACID 500 MG TAB PO SCH ×2 (09:48→21:28)
[2020-10-05] MEDS: ENOXAPARIN 40 MG/0.4 ML SYRINGE SQ SCH (09:49)
[2020-10-05] MEDS: methIMAzole 5 MG TAB PO SCH (09:49)
[2020-10-05] MEDS: PANTOPRAZOLE 40 MG/10 ML VIAL IVP SCH (09:49)
[2020-10-05] MEDS: CHOLECALCIFEROL 25 MCG (1000 IU) TABLET PO SCH (09:49)
[2020-10-05] MEDS: DEXTROSE 5% IN WATER 1,000 ML IV SCH (09:50)
[2020-10-05] MEDS: SODIUM CHLORIDE TAB 1 GM TAB PO SCH (12:41)
--- NOTE | 2020-10-05 13:10 | P.PN ---
Subjective Progress Note Date: 10/05/20 Principal diagnosis: Nausea and vomiting, elevated LFTs This is A 70-year-old male patient who presented to the hospital with complaints of severe diarrhea and vomiting that began a few days ago.His workup in the emergency room he was found to be COVID-19 positive. Also the patient has a history of hepatitis C, which he states he was treated approximately 20 years ago with interferon. He has not had any further follow-up with any professor of environmental science her liver specialist. Today he is seen and examined and denies any nausea or vomiting, diarrhea, or abdominal pain. He is tolerating a regular diet. Sodium has improved today to 130. Objective - Vital Signs Vital signs: Vital Signs Temp 98.0 F 10/05/20 09:46 Pulse 62 10/05/20 09:46 Resp 16 10/05/20 09:46 BP 145/94 10/05/20 09:46 Pulse Ox 94 L 10/05/20 09:46 Intake & Output 10/04/20 10/05/20 10/05/20 18:59 06:59 18:59 Intake Total 460 358 600 Output Total 400 Balance 60 358 600 Weight 92 kg Intake: Oral 460 358 600 Output: Urine 400 Other: Voiding Method Toilet Toilet Urinal Urinal # Voids 1 - Exam General appearance: The patient is alert, oriented, appears in no acute distress. HET: Head is normocephalic and atraumatic. Conjunctiva pink. Sclera anicteric. Neck: Supple without lymphadenopathy. Abdomen: Soft, nontender, nondistended with bowel sounds. No guarding or rigidity. Extremities: Normal skin color and turgor. No pedal edema Skin: No rashes, no jaundice Neurological: No focal deficits. Alert and oriented 3. - Labs CBC & Chem 7: 10/05/20 07:29 10/05/20 07:29 Labs: Abnormal Lab Results - Last 24 Hours (Table) 10/04/20 10/04/20 10/04/20 Range/Units 08:49 15:35 15:35 Lymphocytes # (Manual) 0.43 L (1.0-4.8) k/uL Sodium 121 L (137-145) mmol/L BUN (9-20) mg/dL Creatinine (0.66-1.25) mg/dL Uric Acid 1.5 L (3.5-8.5) mg/dL Calcium (8.4-10.2) mg/dL AST (17-59) U/L ALT (4-49) U/L Total Protein (6.3-8.2) g/dL 10/05/20 Range/Units 07:29 Lymphocytes # (Manual) (1.0-4.8) k/uL Sodium 130 L (137-145) mmol/L BUN 5 L (9-20) mg/dL Creatinine 0.63 L (0.66-1.25) mg/dL Uric Acid (3.5-8.5) mg/dL Calcium 8.2 L (8.4-10.2) mg/dL AST 158 H (17-59) U/L ALT 147 H (4-49) U/L Total Protein 6.2 L (6.3-8.2) g/dL Assessment and Plan (1) Vomiting Narrative/Plan: Patient has had intractable nausea and vomiting for the last 3 days duration. Alonzo yu was started on symptomatic therapy with Zofran and Protonix which has symptoms and have significantly improved. He is been advanced to regular diet and is tolerating it fine. He has no associated abdominal pain. Symptoms could be related to the recent onset of NSAID use or acute COVID-19 infection. Current Visit: Yes Status: Acute Code(s): R11.10 - VOMITING, UNSPECIFIED SNOMED Code(s): 070484309 (2) Hyponatremia Current Visit: Yes Status: Acute Code(s): E87.1 - HYPO-OSMOLALITY AND HYPONA TREMIA SNOMED Code(s): 18521990 (3) Nausea Current Visit: Yes Status: Acute Code(s): R11.0 - NAUSEA SNOMED Code(s): 489789264 (4) COVID-19 Current Visit: No Status: Acute Code(s): U07.1 - COVID-19 SNOMED Code(s): 039162111 (5) Elevated LFTs Narrative/Plan: Mild elevation of serum transaminases in the patient with a remote history of chronic hepatitis C infection. He was treated with interferon about 15-20 years ago states he had responded to the treatment. Currently he is noted to have mild elevation of serum transaminases there is mild leukopenia as well as thrombocytopenia is concern for possible underlying chronic liver disease and possibility of cirrhosis cannot be excluded. Ultrasound of the liver was done that was unremarkable. Current Visit: Yes Status: Acute Code(s): R79.89 - OTHER SPECIFIED ABNORMAL FINDINGS OF BLOOD CHEMISTRY SNOMED Code(s): 811965899 Plan: 1. Continue symptomatic and supportive care 2. Diet as tolerated 3. Hepatitis C viral RNA by PCR ordered, pending results 4. Patient instructed to follow-up with gastroenterology in 1-2 weeks to follow-up on liver enzymes and chronic hepatitis C. Thank you for this consultation, we will sign off at this time Dr. Dar Irving I agree with the dictator's note, documented as a scribe by Michelle Linares.
--- NOTE | 2020-10-05 13:28 | P.PN ---
Subjective Progress Note Date: 10/05/20 HISTORY OF PRESENT ILLNESS This is a 70-year-old male patient of Dr. Jackson past medical history of hyperlipidemia and hyperthyroidism comes in with intractable nausea and vomiting start taking 2 days ago. Patient was seen in the ER yesterday with similar symptoms and was given monoclonal antibodies for Covid infection and was discharged. Patient did call the answering pager due to ongoing nausea and vomiting post discharge from the ER. Oral Zofran and was sent to patient's pharmacy. Patient did have a meal after sick taking some nausea medication but could not tolerate it and hence was decided to come to the hospital again. Evaluation in the ER patient had a temp of 98.5 pulse 58 respiratory rate 18 blood pressure 179/94 he was saturating at 97% on room air. On evaluation patient's blood work WBC is noted to be 3.3 with lymphopenia sodium 1:15 potassium 3.4 chloride 82 bicarb 80 BUN 5 creatinine 0.51 glucose 129 calcium 7.9 magnesium 1.3 elevated AST and ALT is 83 and 60 respectively troponin 1 is negative. Patient received 1-1/2 L IV fluid bolus in the ER and was initially 100 mL/h of IV normal saline. Patient denies any nausea, chest pain, abdominal pain today. He is hard of hearing. We will repeat labs in the evening. Keep patient nothing by mouth. Have gastroenterology evaluated the patient. Acute hepatitis panel ordered. Protonix 40 IV twice a day 10/04 patient examined bedside nausea is improved with addition of Reglan to Zofr an. Patient's no episode of diarrhea or abdominal pain. Ultrasound abdomen was negative for any acute abnormality. Patient was evaluated by Dr. Farrell recommended adding hepatitis C RNA PCR check as patient has a chronic hepatitis and was treated with interferon 15 years ago. Patient labs are evaluated continued to have a sodium of 119. Urine osmolality is 210 urine sodium is 60. Serum osmolarity is 244. Liver enzymes significantly elevated 153 AST ALT 109 alkaline phosphatase 66 LDH 743 CRP 0.5. Creatinine 0.6 BUN 3. Uric acid will be obtained. Dr. Bosch has evaluated the patient and pain patient's sodium is a combination of hypovolemia and tea and toast syndrome. Recommended to increase patient's routine intake and sodium tablets will be added at 10/05: Patient states that nausea and vomiting have resolved. His sodium today is at 1:30 and other electrolytes are normal, BUN 5 and creatinine 0.63. AST 158, ALT 147. TSH 2.370. Patient has been seen by GI for elevated LFTs and order diet as tolerated, hepatitis C virus RNA by PCR ordered. Patient will follow-up with GI after discharge. Nephrology has ordered D5 at 50 mL/h and would like to monitor patient overnight and recheck lab work tomorrow. He also has a sodium level ordered for this afternoon. Anticipate discharge home tomorrow. REVIEW OF SYSTEMS Constitutional: Endorses chills, Denies fever, endorses lethargy endorses loss of appetite Eyes: denies decreased vision, denies diplopia, denies discharge, denies pain Ears, nose, mouth and throat: Denies dental pain, Denies headache, Denies nasal discharge, Denies nose pain Cardiovascular: Denies chest pain, Denies decreased exercise tolerance, Denies edema, Denies high blood pressure, Denies irregular heart beat, Denies palpita tions, Denies paroxysmal nocturnal dyspnea, Denies rapid heart beat, Denies shortness of breath Respiratory: Denies congestion, Denies cough, Denies cough with sputum, Denies dyspnea, Denies home oxygen, Denies wheezing Gastrointestinal: Denies abdominal pain, Denies change in bowel habits, Denies c offee ground emesis, Denies early satiety, Denies excessive gas, Denies heartburn, Denies hematemesis, Denies hematochezia, endorses loss of appetite, endorses endorses nausea, Denies vomiting Genitourinary: Denies dysuria, Denies flank pain, Denies kidney stones, Denies menorrhagia, Denies urgency, Denies urinary frequency Musculoskeletal: Denies gait dysfunction, Denies limitation of motion, Denies morning stiffness, Denies muscle cramps Integumentary: Denies rash, Denies wounds, Denies brittle nails, Denies change in hair/nails, Denies darkening of skin Neurological: Denies balance difficulties, Denies change in speech, Denies double vision, Denies gait dysfunction, Denies loss of vision, Denies motor disturbance, Denies numbness, Denies paralysis, Denies paresthesias, Denies seizures Psychiatric: Denies anxiety, Denies depression Endocrine: Denies excessive sweating, Denies excessive thirst, Denies high blood sugars, Denies palpitations Hematologic/Lymphatic: Denies easy bruising, Denies lymphadenopathy PHYSICAL EXAMINATION Gen: This is a 70-year-old male patient. He is ambulating in his room and appears to be in no acute distress. Gait is steady. HEENT: Head is atraumatic, normocephalic. Pupils equal, round. Sclerae is anicteric. NECK: Supple. No JVD. No lymphadenopathy. No thyromegaly. LUNGS: Clear to auscultation. No wheezes or rhonchi. No intercostal retractions. HEART: Regular rate and rhythm. No murmur. ABDOMEN: Soft. Bowel sounds are present. No masses. No tenderness. EXTREMITIES: No pedal edema. No calf tenderness. Dorsalis pedis palpable bilaterally. NEUROLOGICAL: Patient is awake, alert and oriented x3. Cranial nerves 2 through 12 are grossly intact. ASSESSMENT AND PLAN #1 intractable nausea and vomiting which is likely secondary to acute Covid infection with underlying gastritis. Continue pantoprazole 40 mg IV twice a day. Clears switch to regular diet. No plan for EGD Gastroenterology recommendation appreciated #2 Acute Covid infection. No respiratory compromise. Monitor inflammation markers. will continue vit D, vit C and zinc #3 hyponatremia likely secondary to dehydration and volume deficit with possibility of tea and toast syndrome. Continue to monitor overnight Sodium tablets admitted to 1 g twice a day hold IV fluids nephrology recommendation appreciated #4 hyperthyroidism. TSH ordered. Continue methimazole #5 hyperlipidemia continue atorvastatin every 48 hours #6 DVT prophylaxis with Lovenox 40 subcu daily #7 GI prophylaxis with pantoprazole 40 IV twice a day CODE STATUS full code DISCHARGE PLAN Home tomorrow. Impression and plan of care have been directed as dictated by the signing physician. Daylin Lee nurse practitioner acting as scribe for signing physician. Objective - Vital Signs Vital signs: Vital Signs Temp 98.0 F 10/05/20 09:46 Pulse 62 10/05/20 09:46 Resp 16 10/05/20 09:46 BP 145/94 10/05/20 09:46 Pulse Ox 94 L 10/05/20 09:46 Intake & Output 10/04/20 10/05/20 10/05/20 18:59 06:59 18:59 Intake Total 460 358 600 Output Total 400 Balance 60 358 600 Weight 92 kg Intake: Oral 460 358 600 Output: Urine 400 Other: Voiding Method Toilet Toilet Urinal Urinal # Voids 1 - Labs CBC & Chem 7: 10/05/20 07:29 10/05/20 07:29 Labs: Abnormal Lab Results - Last 24 Hours (Table) 10/04/20 10/04/20 10/04/20 Range/Units 08:49 15:35 15:35 Plt Count 122 L (150-450) k/uL Lymphocytes # (Manual) 0.43 L (1.0-4.8) k/uL Sodium 121 L (137-145) mmol/L BUN (9-20) mg/dL Creatinine (0.66-1.25) mg/dL Uric Acid 1.5 L (3.5-8.5) mg/dL Calcium (8.4-10.2) mg/dL AST (17-59) U/L ALT (4-49) U/L Total Protein (6.3-8.2) g/dL 10/05/20 Range/Units 07:29 Plt Count (150-450) k/uL Lymphocytes # (Manual) (1.0-4.8) k/uL Sodium 130 L (137-145) mmol/L BUN 5 L (9-20) mg/dL Creatinine 0.63 L (0.66-1.25) mg/dL Uric Acid (3.5-8.5) mg/dL Calcium 8.2 L (8.4-10.2) mg/dL AST 158 H (17-59) U/L ALT 147 H (4-49) U/L Total Protein 6.2 L (6.3-8.2) g/dL
--- NOTE | 2020-10-05 16:20 | PN ---
PROGRESS NOTE Patient is seen for followup for hyponatremia which was initially hypovolemic and then associated with poor urine osmotic load mostly like a tea and toast syndrome. Patient was started on sodium chloride tabs. His saline was discontinued yesterday as serum sodium remained at 119 yesterday. Today, he was up to 130. Overall, patient states he is feeling better. He denies any complaints of nausea, vomiting, abdominal pain or diarrhea. No known numbness or tingling. PHYSICAL EXAMINATION: Blood pressure 145/94, heart rate 58 per minute. He is afebrile. EXAMINATION OF THE HEART: S1, S2. EXAMINATION OF THE LUNGS: Bilateral breath sounds are heard. Abdomen is soft, nontender. Examination of lower extremities shows no significant edema. SADDLE MAKER exam grossly intact. LABS: Labs show sodium 130, potassium 3.8, BUN 5, serum creatinine 0.63. ASSESSMENT: 1. Hyponatremia initially hypovolemic once the hypovolemia was corrected, serum sodium did not improve further with normal saline. Urine osmolality was on the lower side and the patient's sodium increased with sodium chloride tabs and discontinuation of fluids. It suggests more like a tea and toast syndrome picture with poor urinary osmotic load. 2. At this time, the serum sodium has corrected somewhat rapidly going up from 121 yesterday to 130 today. I will start D5W at about 50 mL an hour and repeat sodium this afternoon. We will keep the patient in the hospital for one more day to stabilize his sodium prior to discharge. The patient is also advised to increased intake of proteins and maintain some degree of free water restriction. 3. Hyperthyroidism, maintained on Tapazole. 4. Hypokalemia, status post replacement. PLAN: Repeat sodium this evening. Start D5W at 50 mL an hour. Increase protein intake. Continue off of saline. MMODL / IJN: [id number] /
[2020-10-05] MEDS: ATORVASTATIN 20 MG TAB PO SCH (21:28)
[2020-10-05] MEDS: PANTOPRAZOLE 40 MG TABLET PO SCH (21:28)
[2020-10-06] MEDS: DEXTROSE 5% IN WATER 1,000 ML IV SCH ×2 (06:15→10:25)
[2020-10-06 08:08] VITALS: BP 143/81; PULSE 80; RESP 16; TEMP 98
[2020-10-06 09:43] LABS: Basophils % (A) 1 %; Eosinophils % (A) 0 %; HCT 44.1 % (39.0-53.0); HGB 15.6 gm/dL (13.0-17.5); Lymphocytes # (A) 0.9 k/uL (1.0-4.8); Lymphocytes % (A) 15 %; MCH 29.9 pg (25.0-35.0); MCHC 35.3 g/dL (31.0-37.0); MCV 84.5 fL (80.0-100.0); Mean Platelet Volume 7.7; Monocytes # (A) 0.7 k/uL (0-1.0); Monocytes % (A) 10 %; Neutrophils # (A) 4.7 k/uL (1.3-7.7); Neutrophils % (A) 73 %; Platelet Count 230 k/uL (150-450); RBC 5.22 m/uL (4.30-5.90); WBC 6.4 k/uL (3.8-10.6)
[2020-10-06 10:11] LABS: ALT 145 U/L (4-49); AST 106 U/L (17-59); African American GFR (CKD) >90 (>60 ml/min/1.73 sqM); Albumin 3.7 g/dL (3.5-5.0); Alkaline Phosphatase 73 U/L (38-126); Anion Gap 6 mmol/L; Blood Urea Nitrogen 9 mg/dL (9-20); Calcium 8.8 mg/dL (8.4-10.2); Carbon Dioxide 27 mmol/L (22-30); Chloride 97 mmol/L (98-107); Glucose 108 mg/dL (74-99); Non-African American GFR(CKD) >90 (>60 ml/min/1.73 sqM); Sodium 130 mmol/L (137-145); Total Bilirubin 1.1 mg/dL (0.2-1.3); Total Protein 6.6 g/dL (6.3-8.2)
[2020-10-06] MEDS: POTASSIUM CHLORIDE ER 20 MEQ TAB.ER PO SCH (10:24)
[2020-10-06] MEDS: ENOXAPARIN 40 MG/0.4 ML SYRINGE SQ SCH (10:24)
[2020-10-06] MEDS: CHOLECALCIFEROL 25 MCG (1000 IU) TABLET PO SCH (10:24)
[2020-10-06] MEDS: ZINC SULFATE 220 MG CAP PO SCH (10:24)
[2020-10-06] MEDS: methIMAzole 5 MG TAB PO SCH (10:24)
[2020-10-06] MEDS: PANTOPRAZOLE 40 MG TABLET PO SCH (10:25)
[2020-10-06] MEDS: ASCORBIC ACID 500 MG TAB PO SCH (10:25)
--- NOTE | 2020-10-06 13:43 | PN ---
PROGRESS NOTE Patient is seen for followup for hyponatremia, initially hypovolemic and then secondary to tea and toast syndrome with decreased urine osmotic load improved significantly with sodium around 130 yesterday. The patient was started on D5W as there was a significant increase in the sodium level yesterday however it has remained fairly stable and it is again at 130 today. The patient wants to go home. He is feeling well and he can be discharged with plans to repeat labs as outpatient in a few days time. PHYSICAL EXAMINATION: On examination today, patient is comfortable, awake, alert, oriented x3. Blood pressure was 143/81, heart rate 80 per minute. He is appears euvolemic. His TELEVISION PRODUCTION ASSISTANT exam grossly intact. No edema of lower extremities. LABS: Labs show sodium 130, potassium 4.0, serum creatinine 0.7. ASSESSMENT: 1. Hyponatremia initially hypovolemic with also a component of tea and toast syndrome with decreased urinary osmotic load, currently improved with sodium chloride tabs, currently off of sodium chloride tabs. The patient was started on D5W to prevent further increase in his sodium level and it has stayed around 130. He can be discharged today with plans to follow up as outpatient with repeat labs to be done in 2-3 days post discharge. He is advised to maintain good oral protein intake and maintain some degree of free water restriction post discharge. 2. Hyperthyroidism, maintained on Tapazole. 3. Hypokalemia, status post replacement. PLAN: Patient can be discharged from nephrology standpoint, follow up as outpatient and repeat labs in 2-3 days post discharge. MMODL / KAMININ: [id number] /
--- NOTE | 2020-10-06 14:53 | P.DS ---
Providers Date of admission: 10/03/20 11:13 Expected date of discharge: 10/06/20 Attending physician: Thomas Jackson Consults: 10/03/20 11:06 Consult Physician Routine Consulting Provider: Keeley Bosch Consult Reason/Comments: hyponatremia Do you want consulting provider notified?: Yes Primary care physician: [facility] Course: HISTORY OF PRESENT ILLNESS This is a 70-year-old male patient of Dr. Jackson past medical history of hyperlipidemia and hyperthyroidism comes in with intractable nausea and vomiting start taking 2 days ago. Patient was seen in the ER yesterday with similar symptoms and was given monoclonal antibodies for Covid infection and was discharged. Patient did call the answering pager due to ongoing nausea and vom iting post discharge from the ER. Oral Zofran and was sent to patient's pharmacy. Patient did have a meal after sick taking some nausea medication but could not tolerate it and hence was decided to come to the hospital again. Evaluation in the ER patient had a temp of 98.5 pulse 58 respiratory rate 18 blood pressure 179/94 he was saturating at 97% on room air. On evaluation patient's blood work WBC is noted to be 3.3 with lymphopenia sodium 1:15 potassium 3.4 chloride 82 bicarb 80 BUN 5 creatinine 0.51 glucose 129 calcium 7.9 magnesium 1.3 elevated AST and ALT is 83 and 60 respectively troponin 1 is negative. Patient received 1-1/2 L IV fluid bolus in the ER and was initially 100 mL/h of IV normal saline. Patient denies any nausea, chest pain, abdominal pain today. He is hard of hearing. We will repeat labs in the evening. Keep patient nothing by mouth. Have gastroenterology evaluated the patient. Acute hepatitis panel ordered. Protonix 40 IV twice a day 10/04 patient examined bedside nausea is improved with addition of Reglan to Zofran. Patient's no episode of diarrhea or abdominal pain. Ultrasound abdomen was negative for any acute abnormality. Patient was evaluated by Dr. Farrell recommended adding hepatitis C RNA PCR check as patient has a chronic hepatitis and was treated with interferon 15 years ago. Patient labs are evaluated continued to have a sodium of 119. Urine osmolality is 210 urine sodium is 60. Serum osmolarity is 244. Liver enzymes significantly elevated 153 AST ALT 109 alkaline phosphatase 66 LDH 743 CRP 0.5. Creatinine 0.6 BUN 3. Uric acid will be obtained. Dr. Bosch has evaluated the patient and pain patient's sodium is a combination of hypovolemia and tea and toast syndrome. Recommended to increase patient's routine intake and sodium tablets will be added at 10/05: Patient states that nausea and vomiting have resolved. His sodium today is at 1:30 and other electrolytes are normal, BUN 5 and creatinine 0.63. AST 158, ALT 147. TSH 2.370. Patient has been seen by GI for elevated LFTs and order diet as tolerated, hepatitis C virus RNA by PCR ordered. Patient will follow-up with GI after discharge. Nephrology has ordered D5 at 50 mL/h and would like to monitor patient overnight and recheck lab work tomorrow. He also has a sodium level ordered for this afternoon. Anticipate discharge home tomorrow. 10/06: Patient denies any new complaints. No nausea, vomiting or diarrhea. No shortness of breath or cough. No fever or chills. He has been afebrile, heart rate 80, blood pressure 143/81, pulse ox 96% on room air. Repeat blood work reveals CBC is unremarkable except for lymphocytes of 0.9. Sodium is 1:30, potassium 4.0, chloride 97, CO2 27, BUN 9, creatinine 0.77. Blood sugar 108. Total bilirubin 1.1, AST 106, ALT 145, alkaline phosphatase 73. Patient will be discharged home today in stable condition. ASSESSMENT AND PLAN #1 intractable nausea and vomiting which is likely secondary to acute Covid infection with underlying gastritis. #2 Acute Covid infection. #3 hyponatremia likely secondary to dehydration and volume deficit with possibility of tea and toast syndrome. #4 hyperthyroidism. #5 hyperlipidemia DISCHARGE PLAN Home Impression and plan of care have been directed as dictated by the signing physician. Daylin Lee nurse practitioner acting as scribe for signing physician. Patient Condition at Discharge: Stable Plan - Discharge Summary Discharge Rx Participant: Yes New Discharge Prescriptions: New Pantoprazole [Protonix] 40 mg PO DAILY #30 tablet.dr [place] Ascorbic Acid [Vitamin C] 1,000 mg PO DAILY Cholecalciferol [Vitamin D3 (25 Mcg = 1000 Iu)] 50 mcg PO DAILY Atorvastatin [Lipitor] 20 mg PO Q48H Methimazole [Tapazole] 5 mg PO DAILY Zinc 50 mg PO DAILY Discharge Medication List Ascorbic Acid [Vitamin C] 1,000 mg PO DAILY 10/03/20 [History] Atorvastatin [Lipitor] 20 mg PO Q48H 10/03/20 [History] Cholecalciferol [Vitamin D3 (25 Mcg = 1000 Iu)] 50 mcg PO DAILY 10/03/20 [History] Methimazole [Tapazole] 5 mg PO DAILY 10/03/20 [History] Zinc 50 mg PO DAILY 10/03/20 [History] Pantoprazole [Protonix] 40 mg PO DAILY #30 tablet. 10/06/20 [Rx] Follow up Appointment(s)/Referral(s): Meg Garcia PAC [REFERRING] - 2 Weeks (Please call office to make appointment) Thomas Jackson MD [Primary Care Provider] - 10/08/20 11:00 am (Phone Call with Jennifer) Patient Instructions/Handouts: Coronavirus Disease 2019 (COVID-19), Hyponatremia (DC) Discharge Disposition: HOME SELF-CARE
== END 2020-10-06 12:07 | disposition home or self-care (01) | DRG 178 ==
LOC: EC 09:05 → 3SCARD 11:13
PROVIDERS: ADMIT Internal Medicine Geriatric Medicine; ATTEND Internal Medicine Geriatric Medicine
DX: U07.1 COVID-19 (principal); A08.39 Other viral enteritis; E87.1 Hypo-osmolality and hyponatremia; D69.6 Thrombocytopenia, unspecified; E86.0 Dehydration; D72.810 Lymphocytopenia; E86.1 Hypovolemia; E87.6 Hypokalemia; E05.90 Thyrotoxicosis, unspecified without thyrotoxic crisis or storm; I10 Essential (primary) hypertension; E78.5 Hyperlipidemia, unspecified; H91.90 Unspecified hearing loss, unspecified ear; E66.9 Obesity, unspecified; Z68.29 Body mass index [BMI] 29.0-29.9, adult; R94.31 Abnormal electrocardiogram [ECG] [EKG]; Z79.899 Other long term (current) drug therapy; Z87.11 Personal history of peptic ulcer disease; Z87.81 Personal history of (healed) traumatic fracture; Z86.19 Personal history of other infectious and parasitic diseases; Z98.890 Other specified postprocedural states; Z80.1 Family history of malignant neoplasm of trachea, bronchus and lung
CPT/HCPCS: 36415; 74018; 76700; 80053; 80074; 81003; 82150; 83615; 83690; 83735; 83930; 83935; 84295; 84300; 84443; 84484; 84550; 85025; 85379; 85652; 86140; 87522; 87635; 93005; 96360; 96361; 96374; 96375; 99284; 99285

== ENCOUNTER 2021-01-19 12:35 | Emergency (ER) | payer MEDICARE ==
[2021-01-19] MEDS ORDERED: LIDOCAINE 1% INJ 10MG/ML (20 ML MDV) SQ ONE (12:56)
[2021-01-19] MEDS ORDERED: BACITRACIN OINT 1 EACH PACKET TOPICAL ONE (12:56)
--- NOTE | 2021-01-19 13:33 | ED ---
Wound/Laceration HPI - General Chief Complaint: Wound/Laceration Stated Complaint: lt thigh lac Time Seen by Provider: 01/19/21 12:49 Source: patient Mode of arrival: wheelchair Limitations: no limitations - History of Present Illness Initial Comments: Patient is a 70-year-old male presenting to the emergency Department with complaints of a laceration to his left upper leg. He states he was using a razor to cut some vinyl when it slipped and he cut his left leg. He is not on blood thinners. His is vaccine is up-to-date. Bleeding is controlled with a bandage. He has no further complaints. - Related Data Home Medications Medication Instructions Recorded Confirmed Ascorbic Acid [Vitamin C] 1,000 mg PO DAILY 10/03/20 10/03/20 Atorvastatin [Lipitor] 20 mg PO Q48H 10/03/20 10/03/20 Cholecalciferol [Vitamin D3 (25 50 mcg PO DAILY 10/03/20 10/03/20 Mcg = 1000 Iu)] Methimazole [Tapazole] 5 mg PO DAILY 10/03/20 10/03/20 Zinc 50 mg PO DAILY 10/03/20 10/03/20 Previous Rx's Medication Instructions Recorded Pantoprazole [Protonix] 40 mg PO DAILY #30 tablet. 10/06/20 Allergies Allergy/AdvReac Type Severity Reaction Status Date / Time No Known Allergies Allergy Verified 01/19/21 12:48 Review of Systems ROS Statement: Those systems with pertinent positive or pertinent negative responses have been documented in the HPI. ROS Other: All systems not noted in ROS Statement are negative. Past Medical History Past Medical History: Hyperlipidemia, Thyroid Disorder History of Any Multi-Drug Resistant Organisms: None Reported Past Surgical History: Orthopedic Surgery Additional Past Surgical History / Comment(s): ulcers Past Anesthesia/Blood Transfusion Reactions: No Reported Reaction Past Psychological History: No Psychological Hx Reported Smoking Status: Never smoker Past Alcohol Use History: None Reported Past Drug Use History: None Reported - Past Family History Mother Family Medical History: No Reported History Father Family Medical History: Cancer Additional Family Medical History / Comment(s): LUNG CANCER General Exam - General Exam Comments Initial Comments: GENERAL: Patient is well-developed and well-nourished. Patient is nontoxic and in no acute distress. HEAD: Atraumatic, normocephalic. EYES: Pupils equal round and reactive to light, extraocular movements intact, sclera anicteric, conjunctiva are normal. Eyelids were unremarkable. LUNGS: Unlabored respirations. Breath sounds clear to auscultation bilaterally and equal. No wheezes rales or rhonchi. HEART: Regular rate and rhythm without murmurs, rubs or gallops. MUSCULOSKELETAL: Normal extremities with adequate strength and normal range of motion, no pitting or edema. No clubbing or cyanosis. NEUROLOGICAL: Patient is alert and oriented x 3. SKIN: Warm, Dry, normal turgor, no rashes. Patient has a 4 cm horizontal laceration to the middle of his left upper leg, anterior aspect. Bleeding is controlled. Limitations: no limitations Course Vital Signs 01/19/21 12:47 Temperature 98.1 F Pulse Rate 69 Respiratory 16 Rate Blood Pressure 134/76 O2 Sat by Pulse 97 Oximetry Procedures - Laceration Laceration #1 Consent Obtained: verbal consent Indication: laceration Site: lower extremity (Left upper thigh) Size (cm): 4 Description: linear Depth: simple, single layer Anesthetic Used: lidocaine 1% Anesthesia Technique: local infiltration Amount (mls): 4 Pre-repair: irrigated extensively Type of Sutures: nylon Size of Sutures: 4-0 Number of Sutures: 7 Technique: simple, interrupted Patient Tolerated Procedure: well Medical Decision Making - Medical Decision Making Patient is a 70-year-old male presenting to the ER with a 4 cm laceration to his left upper thigh after the razor he was using slipped and accidentally cut his leg. His tetanus vaccine is up-to-date. He is not on blood thinners. Bleeding is controlled with a bandage. Patient's wound was cleaned, closed with 7, 40 sutures. He tolerated procedure well. He is stable for discharge. Disposition Clinical Impression: Laceration of left thigh Disposition: HOME SELF-CARE Condition: Stable Instructions (If sedation given, give patient instructions): Care For Your Stitches (ED) Additional Instructions: Please return to the Emergency Department if symptoms worsen or any other concerns. Stitches need to be removed in 7-10 days. Keep area clean and dry. Keep covered while wearing pants. Is patient prescribed a controlled substance at d/c from ED?: No Referrals: Thomas Jackson MD [Primary Care Provider] - 1-2 days Time of Disposition: 13:33
[2021-01-19 13:58] VITALS: BP 141/84; PULSE 83; RESP 18; TEMP 98.5
== END 2021-01-19 13:57 | disposition home or self-care (01) ==
LOC: EC 12:35
DX: S71.112A Laceration without foreign body, left thigh, initial encounter (principal); E78.5 Hyperlipidemia, unspecified; W26.8XXA Contact with other sharp object(s), not elsewhere classified, initial encounter
CPT/HCPCS: 99282; 12002; J2001